=== PATIENT | female | born 1955 | race Caucasian/White ===

== ENCOUNTER 2017-04-13 10:15 | Outpatient (CLI) | payer OTHER ==
[2017-04-13 19:01] LABS: BASOPHILS % (AUTO) 0.5 %; EOSINOPHILS % (AUTO) 0.8 %; HCT - HEMATOCRIT 41.8 % (37.0-47.0); HGB - HEMOGLOBIN 14.2 g/dL (12.0-16.0); LYMPHOCYTES # (AUTO) 1.8 10^3/uL (1.5-3.5); LYMPHOCYTES % (AUTO) 42.5 %; MEAN PLATELET VOLUME 8.1 fL (7.9-10.8); MONOCYTES # (AUTO) 0.2 10^3/uL (0.0-1.0); MONOCYTES % (AUTO) 3.9 %; NEUTROPHILS # (AUTO) 2.2 10^3/uL (1.5-6.6); NEUTROPHILS % (AUTO) 52.3 %; NUCLEATED RED BLOOD CELLS AUTO 0.2 /100WBC; RED BLOOD COUNT 4.18 10^6/uL (4.20-5.40); RED CELL DISTRIBUTION WIDTH 14.4 % (12.0-15.0); UNCORRECTED WHITE BLOOD COUNT 4.2 x10^3/uL; WHITE BLOOD COUNT 4.2 x10^3/uL (4.8-10.8)
[2017-04-13 19:25] LABS: ALBUMIN/GLOBULIN RATIO 1.3 (1.0-2.2); BILIRUBIN,TOTAL 0.5 mg/dL (0.2-1.0); BUN - BLOOD UREA NITROGEN 17 mg/dL (6-20); CALCIUM 8.6 mg/dL (8.5-10.3); CARBON DIOXIDE - CO2 23 mmol/L (21-32); CHLORIDE 109 mmol/L (101-111); CREATININE 0.6 mg/dL (0.4-1.0); GFR - MDRD 102 (>89); GLUCOSE 86 mg/dL (70-100); POTASSIUM 4.1 mmol/L (3.5-5.0); SODIUM 139 mmol/L (135-145); TOTAL PROTEIN 6.5 g/dL (6.7-8.2)
== END 2017-04-13 10:16 | disposition home or self-care (01) ==
LOC: LAB.F 10:15
PROVIDERS: ATTEND Internal Medicine Rheumatology
DX: M32.9 Systemic lupus erythematosus, unspecified (principal)
CPT/HCPCS: 36415; 80053; 85025; 85651; 86140

== ENCOUNTER 2019-04-24 10:29 | Outpatient (CLI) | payer OTHER ==
[2019-04-24 17:46] LABS: LYMPHOCYTES # (AUTO) 1.3 10^3/uL (1.5-3.5); NEUTROPHILS # (AUTO) 2.1 10^3/uL (1.5-6.6)
[2019-04-24 17:48] LABS: EOSINOPHILS # (AUTO) 0.1 10^3/uL (0.0-0.7); EOSINOPHILS % (AUTO) 2.1 %; HGB - HEMOGLOBIN 11.6 g/dL (12.0-16.0); MEAN CORPUSCULAR HGB CONC 29.4 g/dL (32.0-36.0); MEAN CORPUSCULAR VOLUME 94.9 fL (81.0-99.0); MEAN PLATELET VOLUME 9.5 fL (7.9-10.8); MONOCYTES # (AUTO) 0.1 10^3/uL (0.0-1.0); MONOCYTES % (AUTO) 3.7 %; NEUTROPHILS % (AUTO) 57.9 %; PLT - PLATELET COUNT 483 10^3/uL (130-450); RED BLOOD COUNT 4.15 10^6/uL (4.20-5.40); RED CELL DISTRIBUTION WIDTH 15.2 % (12.0-15.0); WHITE BLOOD COUNT 3.8 x10^3/uL (4.8-10.8)
[2019-04-24 18:47] LABS: BILIRUBIN,TOTAL 0.6 mg/dL (0.2-1.0); CREATININE 0.5 mg/dL (0.4-1.0)
[2019-04-24 18:50] LABS: ALBUMIN 3.8 g/dL (3.2-5.5); ALBUMIN/GLOBULIN RATIO 1.3 (1.0-2.2); CRP - C-REACTIVE PROTEIN 1.2 mg/dL (0-1.0); TOTAL PROTEIN 6.7 g/dL (6.7-8.2)
[2019-04-24 20:42] LABS: CREATININE,URINE 98.5 mg/dL; PROTEIN/CREATININE RATIO,URINE 0.1 (<=0.2)
[2019-04-26 10:37] LABS: DNA (DS) ANTIBODY 1 IU/mL
[2019-04-26 15:26] LABS: COMPLEMENT COMPONENT C3C 95 mg/dL (83-193); COMPLEMENT COMPONENT C4C 27 mg/dL (15-57)
== END 2019-04-24 10:30 | disposition home or self-care (01) ==
LOC: LAB.S 10:29
PROVIDERS: ATTEND Internal Medicine Rheumatology
DX: M32.9 Systemic lupus erythematosus, unspecified (principal)
CPT/HCPCS: 36415; 80053; 82570; 84156; 85025; 85651; 86140; 86160; 86225

== ENCOUNTER 2019-05-06 15:51 | Outpatient (CLI) | payer OTHER ==
[2019-05-06] MEDS ORDERED: GADOBUTROL 7.5 MMOL/7.5 ML VIAL ONE (16:04)
[2019-05-06] MEDS ORDERED: GADOBUTROL 7.5 MMOL/7.5 ML VIAL IVP ONE (17:38)
--- NOTE | 2019-05-08 06:20 | MRI Report ---
Reason: Non healing surgical wound, Question of osteomyelitis Procedure Date: 05/06/2019 Accession Number: [id number] / [id number] Procedure: MRI - Thoracic Spine W/WO CPT Code: FULL RESULT: EXAM: MRI THORACIC SPINE WITHOUT AND WITH CONTRAST EXAM DATE: 05/06/2019 05:32 PM. CLINICAL HISTORY: Non healing surgical wound, Question of osteomyelitis. COMPARISONS: None. TECHNIQUE: Multiplanar, multisequence T1-weighted and fluid-sensitive sequences of the thoracic spine from C7 to L1 before and after administration of intravenous contrast. Other: None. IV contrast: . FINDINGS: Spinal Cord: No signal abnormality in the visualized spinal cord. Alignment: No scoliosis or spondylolisthesis. Bone Marrow: No gross fractures or bone lesion. No bone marrow edema or abnormal enhancement. There are no findings to suggest osteomyelitis. Disk Levels/Facets: The disks are intact. There are no focal protrusions. The spinal canal and the intervertebral foramina are widely patent. Spinal Canal: No enhancing masses within the spinal canal. No epidural abscess. Musculature: The paraspinal muscles are unremarkable. On the sagittal images series 601 images 8 through 11 demonstrate subtle edematous change in the deeper subcutaneous tissues overlying the mid dorsal spine. There are no focal drainable fluid collections. Other: The visualized lungs, mediastinum, and abdominal cavity are unremarkable. IMPRESSION: 1. No evidence for osteomyelitis. No disk protrusions. 2. Subtle edematous changes in the deeper subcutaneous tissues overlying the mid dorsal spine. No focal drainable fluid collections. [facility]
== END 2019-05-06 15:52 | disposition home or self-care (01) ==
LOC: DI 15:51
PROVIDERS: ATTEND Internal Medicine
DX: T81.89XS Other complications of procedures, not elsewhere classified, sequela (principal)
CPT/HCPCS: 72157; A9585

== ENCOUNTER 2020-07-09 17:49 | Outpatient (CLI) | payer OTHER | END 2020-07-09 17:50 | disposition home or self-care (01) | LOC: COV 17:49 | PROVIDERS: ATTEND Family Medicine | DX: Z20.828 Contact with and (suspected) exposure to other viral communicable diseases (principal) ==

== ENCOUNTER 2022-03-26 08:49 | Outpatient (CLI) | payer OTHER, MEDICARE ==
[2022-03-26 14:49] LABS: ALBUMIN 4.1 g/dL (3.2-5.5); ALBUMIN/GLOBULIN RATIO 1.3 (1.0-2.2); ALKALINE PHOSPHATASE 46 IU/L (42-121); ALT ALANINE AMINOTRANSFERASE 12 IU/L (10-60); AST ASPARTATE AMINOTRANSFERASE 15 IU/L (10-42); BILIRUBIN,TOTAL 0.9 mg/dL (0.2-1.0); BUN - BLOOD UREA NITROGEN 18 mg/dL (6-20); CALCIUM 9.2 mg/dL (8.5-10.3); CARBON DIOXIDE - CO2 28 mmol/L (21-32); CHLORIDE 104 mmol/L (101-111); CREATININE 0.6 mg/dL (0.4-1.0); GFR - MDRD 100 (>89); GLUCOSE 80 mg/dL (70-100); POTASSIUM 4.2 mmol/L (3.5-5.0); SODIUM 139 mmol/L (135-145); TOTAL PROTEIN 7.2 g/dL (6.7-8.2)
[2022-03-26 15:03] LABS: BASOPHILS % (AUTO) 0.4 %; EOSINOPHILS # (AUTO) 0.1 10^3/uL (0.0-0.7); HCT - HEMATOCRIT 43.9 % (37.0-47.0); HGB - HEMOGLOBIN 13.7 g/dL (12.0-16.0); LYMPHOCYTES # (AUTO) 1.4 10^3/uL (1.5-3.5); LYMPHOCYTES % (AUTO) 29.9 %; MEAN CORPUSCULAR HEMOGLOBIN 29.4 pg (27.0-31.0); MEAN CORPUSCULAR HGB CONC 31.2 g/dL (32.0-36.0); MEAN CORPUSCULAR VOLUME 94.2 fL (81.0-99.0); MEAN PLATELET VOLUME 9.7 fL (7.9-10.8); MONOCYTES # (AUTO) 0.3 10^3/uL (0.0-1.0); MONOCYTES % (AUTO) 6.4 %; NEUTROPHILS % (AUTO) 62.1 %; PLT - PLATELET COUNT 329 10^3/uL (130-450); RED BLOOD COUNT 4.66 10^6/uL (4.20-5.40); WHITE BLOOD COUNT 4.8 x10^3/uL (4.8-10.8)
[2022-03-26 15:12] LABS: CRP - C-REACTIVE PROTEIN < 1.0 mg/dL (0-1.0)
[2022-03-26 15:49] LABS: CREATININE,URINE 119.1 mg/dL; PROTEIN/CREATININE RATIO,URINE 0.1 (<=0.2)
[2022-03-27 07:10] LABS: COMPLEMENT C3 88 mg/dL (82-167); COMPLEMENT C4 23 mg/dL (12-38)
== END 2022-03-26 08:50 | disposition home or self-care (01) ==
LOC: LAB.S 08:49
PROVIDERS: ATTEND Internal Medicine Rheumatology
DX: M81.0 Age-related osteoporosis without current pathological fracture (principal); M32.10 Systemic lupus erythematosus, organ or system involvement unspecified
CPT/HCPCS: 36415; 80053; 82570; 84156; 85025; 85651; 86140; 86160; 86225